=== PATIENT | female | born 1995 ===

== ENCOUNTER 2021-12-30 11:48 | Inpatient (IN) ==
[~2021-12-30 11:48] MED LIST: EPHEDrine sulfate 50 MG/10 ML VIAL IVP PRN; Epidural Premix (fent/bupiv) 110 ML EP SCH; Famotidine 20 MG/2 ML VIAL IVP PRN; Lidocaine -MPF 1% 5 ML AMPUL INFILT PRN; Metoclopramide 10 MG/2 ML VIAL IVP PRN; Naloxone 0.4 MG/ML INJ IVP PRN; Ondansetron 4 MG/2 ML VIAL IVP PRN
[2021-12-30 12:39] LABS: Basophils # 0.1 K/mcL (0.0-0.2); Basophils % 0.4 %; Eosinophils % 0.2 %; Hematocrit 35.7 % (35.3-44.9); Hemoglobin 11.1 g/dL (11.5-15.4); Immature Granulocytes % 1.5 % (0-4); Lymphocytes # 1.8 K/mcL (0.6-4.6); Lymphocytes % 8.9 %; Mean Corpuscular HGB Conc 31.1 g/dL (31.6-35.5); Mean Corpuscular Hemoglobin 23.8 pg (28.0-33.3); Mean Corpuscular Volume 76.6 fL (83.0-100.0); Monocytes # 0.8 K/mcL (0.0-1.3); Monocytes % 4.1 %; Neutrophils # 16.6 K/mcL (1.6-8.9); Platelet Count 303 K/mcL (140-400); Red Blood Count 4.66 M/mcL (3.82-4.97); Red Cell Distribution Width 14.1 % (11.5-14.5); Segmented Neutrophils % 84.9 %; White Blood Count 19.6 K/mcL (4.3-11.1)
[2021-12-30 13:32] LABS: Amphetamine Screen,Urine Negative ng/mL (Cutoff=1000); Barbiturate Screen,Urine Negative ng/mL (Cutoff=200); Benzodiazepines Screen,Urine Negative ng/mL (Cutoff=200); Cannabinoid Screen,Urine Negative ng/mL (Cutoff = 50); Cocaine Screen,Urine Negative ng/mL (Cutoff= 300); Opiate Screen,Urine Negative ng/mL (Cutoff=300); Phencyclidine Screen,Urine Negative ng/mL (Cutoff=25)
[2021-12-30] MEDS: *HR* Nalbuphine 10 MG/ML AMPUL IV PRN ×2 (13:58→18:06)
[2021-12-30] MEDS ORDERED: miSOPROStoL 25 MCG TABLET PO PRN (16:05)
[2021-12-30] MEDS ORDERED: Oxytocin 30 UNIT/503 ML BAG IVC SCH (22:30)
[2021-12-30] MEDS ORDERED: Ringers Solution, Lactated 1,000 ML ONE (22:46)
[2021-12-31] MEDS ORDERED: Ringers Solution, Lactated 1,000 ML ONE (00:05)
[2021-12-31] MEDS ORDERED: OXYTOCIN/RINGERS LACTATE 10 UNIT/166.6 ML BAG IVC ONE ×2 (04:54→07:18)
[2021-12-31] MEDS ORDERED: Measles/Mumps/Rubella Vacc 0.5 ML VIAL SQ PRN ×2 (04:54→07:18)
[2021-12-31] MEDS ORDERED: Benzocaine/Menthol 56 GM AEROSOL SPRAY TP PRN ×2 (04:54→08:38)
[2021-12-31] MEDS ORDERED: Lanolin 7 G OINT...G. TP PRN ×2 (04:54→07:18)
[2021-12-31] MEDS ORDERED: Ondansetron ODT 4 MG TAB.RAPDIS SL PRN ×2 (04:54→07:18)
[2021-12-31] MEDS ORDERED: Rho Immune Globulin 1,500 UNIT SYRINGE IM PRN ×2 (04:54→07:18)
[2021-12-31] MEDS ORDERED: Acetaminophen 325 MG TABLET PO SCH ×2 (05:00→11:00)
[2021-12-31] MEDS ORDERED: Oxytocin 30 UNIT/503 ML BAG IVC SCH ×2 (05:00→07:18)
[2021-12-31] MEDS ORDERED: Ibuprofen 600 MG TABLET PO SCH (07:54)
[2021-12-31] MEDS: Ibuprofen 600 MG TABLET PO SCH ×3 (08:22→20:12)
[2021-12-31] MEDS: Prenatal Vit/FA 1 EACH TABLET PO SCH (08:22)
[2021-12-31 08:33] VITALS: O2SAT 98
[2021-12-31] MEDS ORDERED: Prenatal Vit/FA 1 EACH TABLET PO SCH (09:00)
[2021-12-31] MEDS: Acetaminophen 325 MG TABLET PO PRN (11:13)
[2022-01-01] MEDS: Acetaminophen 325 MG TABLET PO PRN ×2 (05:14→11:32)
[2022-01-01] MEDS: Ibuprofen 600 MG TABLET PO SCH ×2 (05:14→11:33)
[2022-01-01 06:16] LABS: Basophils % 0.2 %; Eosinophils % 0.3 %; Hematocrit 25.5 % (35.3-44.9); Immature Granulocytes % 0.5 % (0-4); Lymphocytes # 1.5 K/mcL (0.6-4.6); Lymphocytes % 11.8 %; Mean Corpuscular HGB Conc 32.5 g/dL (31.6-35.5); Mean Corpuscular Volume 79.9 fL (83.0-100.0); Mean Platelet Volume 10.7 fL (9.4-12.4); Monocytes # 1.1 K/mcL (0.0-1.3); Monocytes % 8.3 %; Neutrophils # 10.3 K/mcL (1.6-8.9); Platelet Count 251 K/mcL (140-400); Red Blood Count 3.19 M/mcL (3.82-4.97); Segmented Neutrophils % 78.9 %
[2022-01-01 06:24] LABS: Hemoglobin 8.3 g/dL (11.5-15.4)
[2022-01-01] MEDS: Prenatal Vit/FA 1 EACH TABLET PO SCH (07:27)
[2022-01-01 15:17] VITALS: BP 109/71; PULSE 98; TEMP 98.2
== END 2022-01-01 17:50 | disposition home or self-care (01) | DRG 807 ==
LOC: 1NENULAB → 1NENUOBS 12-31 07:17
PROVIDERS: ADMIT Advanced Practice Midwife; ATTEND Advanced Practice Midwife